=== PATIENT | female | born 1980 | race African-American/Black ===

== ENCOUNTER 2016-12-31 16:49 | Emergency (ER) | payer MEDICAID ==
[2016-12-31] MEDS ORDERED: ASPIRIN 81 MG TABLET, CHEWABLE PO ONE (17:53)
--- NOTE | 2016-12-31 17:55 | ER Document Report ---
ED Medical Screen (RME) - General Stated Complaint: CHEST PAIN Mode of Arrival: Ambulatory Information source: Patient Notes: Patient presents to the emergency department with complaints of right-sided chest pain that comes and goes for the past month and a half. She reports she will for spasm and tightening. She also complains of right sided arm pain. Denies other symptoms such as fever vomiting diarrhea. Denies history of cardiac disease. Denies family history of cardiac disease. Patient does smoke. TRAVEL OUTSIDE OF THE [place] IN LAST 30 DAYS: No Past Medical History Pulmonary Medical History: Denies: Hx Asthma, Hx Pneumonia Past Surgical History: Reports: Hx Orthopedic Surgery - hip Physical Exam - Vital signs Vitals: Temp Pulse Resp BP Pulse Ox 98.5 F 74 14 127/84 H 98 12/31/16 16:53 12/31/16 16:53 12/31/16 16:53 12/31/16 16:53 12/31/16 16:53 Course - Vital Signs Vital signs: Temp Pulse Resp BP Pulse Ox 98.5 F 74 14 127/84 H 98 12/31/16 16:53 12/31/16 16:53 12/31/16 16:53 12/31/16 16:53 12/31/16 16:53
[2016-12-31 18:17] LABS: ABSOLUTE EOSINOPHILS # (AUTO) 0.1 10^3/uL (0.0-0.6); ABSOLUTE LYMPHOCYTES (AUTO) 3.1 10^3/uL (0.5-4.7); ABSOLUTE MONOCYTES (AUTO) 0.6 10^3/uL (0.1-1.4); ABSOLUTE NEUT (AUTO) 3.1 10^3/uL (1.7-8.2); BASOPHILS % (AUTO) 0.7 % (0-2); EOSINOPHILS % (AUTO) 1.8 % (0-6); HEMATOCRIT 35.3 % (36.0-47.0); HGB HCT DIFFERENCE 0.7; LYMPHOCYTES % (AUTO) 44.6 % (13-45); MEAN CORPUSCULAR HEMOGLOBIN 33.7 pg (27.0-33.4); MEAN CORPUSCULAR VOLUME 99 fl (80-97); MONOCYTES % (AUTO) 8.9 % (3-13); RED BLOOD COUNT 3.57 10^6/uL (3.72-5.28); RED CELL DISTRIBUTION WIDTH 12.6 % (11.5-14.0); WHITE BLOOD COUNT 6.9 10^3/uL (4.0-10.5)
[2016-12-31 18:39] LABS: ALANINE AMINOTRANSFERASE 25 U/L (9-52); ALBUMIN 4.7 g/dL (3.5-5.0); ALKALINE PHOSPHATASE 74 U/L (38-126); ANION GAP 13 (5-19); ASPARTATE AMINO TRANSFERASE 19 U/L (14-36); BILIRUBIN,TOTAL 0.6 mg/dL (0.2-1.3); BLOOD UREA NITROGEN 12 mg/dL (7-20); CALCIUM 9.8 mg/dL (8.4-10.2); CARBON DIOXIDE 27 mmol/L (22-30); CHLORIDE 103 mmol/L (98-107); CREATINE KINASE 82 U/L (30-135); CREATININE RESULT 0.82 mg/dL (0.52-1.25); GLUCOSE 93 mg/dL (75-110); SODIUM 142.5 mmol/L (137-145); TOTAL PROTEIN 8.2 g/dL (6.3-8.2)
[2016-12-31 18:52] LABS: CREATINE KINASE MB < 0.22 ng/mL (<4.55); TROPONIN I < 0.012 ng/mL
--- NOTE | 2016-12-31 19:41 | EKG REPORT ---
SEVERITY:- NORMAL ECG - SINUS RHYTHM : Confirmed by: Leisa Menon 31-Dec-2016 19:40:51
--- NOTE | 2016-12-31 20:06 | ER Document Report ---
ED General - General Chief Complaint: Chest Pain Stated Complaint: CHEST PAIN Mode of Arrival: Ambulatory Information source: Patient Notes: 36-year-old female presents with complaints of intermittent chest tightness sensation which occurs at rest and without any exertion. Patient notes she is able to exercise daily with no problems. Patient denies any shortness breath difficulty breathing. Patient denies any DVT or PE risk factors. Patient denies any cardiac risk factors. Patient notes symptoms have been ongoing for a few weeks now Patient admits to anxiety TRAVEL OUTSIDE OF THE [place] IN LAST 30 DAYS: No - HPI Onset: Other Onset/Duration: Intermittent Quality of pain: Cramping Severity: Mild Pain Level: 1 Associated symptoms: Chest pain Exacerbated by: Denies Relieved by: Denies Similar symptoms previously: No Recently seen / treated by doctor: No Past Medical History - General Information source: Patient - Social History Smoking Status: Never Smoker Cigarette use (# per day): No Chew tobacco use (# tins/day): No Smoking Education Provided: No Family History: Reviewed & Not Pertinent Pulmonary Medical History: Denies: Hx Asthma, Hx Pneumonia Past Surgical History: Reports: Hx Orthopedic Surgery - hip Review of Systems - Review of Systems Notes: REVIEW OF SYSTEMS: CONSTITUTIONAL : Denies fever, chills, or sweats. Denies recent illness. EENT: Denies eye, ear, throat, or mouth pain or symptoms. Denies nasal or sinus congestion or discharge. Denies throat, tongue, or mouth swelling or difficulty swallowing. CARDIOVASCULAR: Admits to chest tightness RESPIRATORY: Denies cough, cold, or chest congestion. Denies shortness of breath, difficulty breathing, or wheezing. GASTROINTESTINAL: Denies abdominal pain or distention. Denies nausea, vomiting , or diarrhea. Denies blood in vomitus, stools, or per rectum. Denies black, tarry stools. Denies constipation. GENITOURINARY: Denies difficulty urinating, painful urination, burning, frequency, blood in urine, or discharge. FEMALE GENITOURINARY: Denies vaginal bleeding, heavy or abnormal periods, irregular periods. Denies vaginal discharge or odor. MUSCULOSKELETAL: Denies back or neck pain or stiffness. Denies joint pain or swelling. SKIN: Denies rash, lesions or sores. HEMATOLOGIC : Denies easy bruising or bleeding. LYMPHATIC: Denies swollen, enlarged glands. NEUROLOGICAL: Denies confusion or altered mental status. Denies passing out or loss of consciousness. Denies dizziness or lightheadedness. Denies headache. Denies weakness or paralysis or loss of use of either side. Denies problems with gait or speech. Denies sensory loss, numbness, or tingling. Denies seizures. PSYCHIATRIC: Denies anxiety or stress. Denies depression, suicidal ideation, or homicidal ideation. ALL OTHER SYSTEMS REVIEWED AND NEGATIVE. Dictation was performed using hi5 voice recognition software PHYSICAL EXAMINATION: GENERAL: Well-appearing, well-nourished and in no acute distress. HEAD: Atraumatic, normocephalic. EYES: Pupils equal round and reactive to light, extraocular movements intact, conjunctiva are normal. ENT: Nares patent, oropharynx clear without exudates. Moist mucous membranes. NECK: Normal range of motion, supple without lymphadenopathy LUNGS: Breath sounds clear to auscultation bilaterally and equal. No wheezes rales or rhonchi. HEART: Regular rate and rhythm without murmurs ABDOMEN: Soft, nontender, nondistended abdomen. No guarding, no rebound. No masses appreciated. Female : deferred Musculoskeletal: Normal range of motion, no pitting or edema. No cyanosis. NEUROLOGICAL: Cranial nerves grossly intact. Normal speech, normal gait. Normal sensory, motor exams PSYCH: Normal mood, normal affect. SKIN: Warm, Dry, normal turgor, no rashes or lesions noted. Physical Exam - Vital signs Vitals: Temp Pulse Resp BP Pulse Ox 98.5 F 74 14 127/84 H 98 12/31/16 16:53 12/31/16 16:53 12/31/16 16:53 12/31/16 16:53 12/31/16 16:53 Course - Re-evaluation Re-evalutation: 12/31/16 20:10 Given that patient has actually no risk factors for cardiac events, specifically condoms were negative chest x-ray was normal EKG was normal I have very low suspicion for any life-threatening issues. Patient will be given a follow-up with cardiology for reevaluation as otherwise stable for discharge After performing a Medical Screening Examination, I estimate there is LOW risk for RUPTURED ESOPHAGUS, PNEUMOTHORAX, PULMONARY EMBOLISM, ACUTE CORONARY SYNDROME, OR THORACIC AORTIC DISSECTION, thus I consider the discharge disposition reasonable. The patient and I have discussed the diagnosis and risks , and we agree with discharging home with close follow-up. We also discussed returning to the Emergency Department immediately if new or worsening symptoms occur. We have discussed the symptoms which are most concerning (e.g., bloody sputum, worsening pain or shortness of breath) that necessitate immediate return. - Vital Signs Vital signs: Temp Pulse Resp BP Pulse Ox 98.5 F 74 14 127/84 H 98 12/31/16 16:53 12/31/16 16:53 12/31/16 16:53 12/31/16 16:53 12/31/16 16:53 - Laboratory Result Diagrams: 12/31/16 18:00 12/31/16 18:00 Laboratory results interpreted by me: 12/31/16 18:00 RBC 3.57 L Hct 35.3 L MCV 99 H MCH 33.7 H - Diagnostic Test Radiology reviewed: Image reviewed, Reports reviewed - EKG Interpretation by Nv EKG shows normal: Sinus rhythm, [place], Intervals, QRS Complexes Discharge - Discharge Clinical Impression: Chest pain Qualifiers: Chest pain type: unspecified Qualified Code(s): R07.9 - Chest pain, unspecified Condition: Stable Disposition: HOME, SELF-CARE Instructions: Chest Pain of Unclear Cause ([facility]) Additional Instructions: 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 Please take aspirin daily
[2016-12-31 20:39] VITALS: BP 121/78
== END 2016-12-31 20:40 | disposition home or self-care (01) ==
LOC: ER 16:49
DX: R07.89 Other chest pain (principal); F41.9 Anxiety disorder, unspecified
CPT/HCPCS: 36415; 71020; 80053; 82550; 82553; 84484; 84703; 85025; 93005; 93010; 99285

== ENCOUNTER → 2017-05-23 | Outpatient (CLI) | payer MEDICAID ==
--- NOTE | 2017-05-23 15:26 | RADIOLOGY REPORT (SQ) ---
EXAM DESCRIPTION: ACUTE ABDOMEN SERIES COMPLETED DATE/TIME: 05/23/2017 1:32 pm REASON FOR STUDY: UNSPECIFIED ABDOMINAL PAIN R10.9 UNSPECIFIED ABDOMINAL PAIN COMPARISON: None. NUMBER OF VIEWS: Three views. TECHNIQUE: Frontal chest, supine abdomen and upright/decubitus abdomen radiographic images acquired. LIMITATIONS: None. FINDINGS: CHEST: Lungs clear of infiltrates. FREE AIR: None. No abnormal gas collections. BOWEL GAS PATTERN: Nonobstructive pattern. No dilated loops or air fluid levels. CALCIFICATIONS: No suspicious calcifications. HARDWARE: Surgical clips in the pelvis and lower abdomen. SOFT TISSUES: No gross mass or suggestion of organomegaly. BONES: No acute fracture. No worrisome bone lesions. OTHER: No other significant finding. IMPRESSION: NO RADIOGRAPHIC EVIDENCE FOR ACUTE ABDOMINAL DISEASE. TECHNICAL DOCUMENTATION: JOB ID: [id number] [employer] All Rights Reserved
== END ==
LOC: OD 12:33
PROVIDERS: ATTEND Family Medicine Geriatric Medicine
DX: R10.9 Unspecified abdominal pain (principal)
CPT/HCPCS: 74022

== ENCOUNTER → 2017-09-02 | Outpatient (CLI) | payer OTHER ==
--- NOTE | 2017-09-02 12:48 | RADIOLOGY REPORT (SQ) ---
EXAM DESCRIPTION: U/S NON-OB PELVIS W/O DOP; U/S NON-OB PELVIS TV W/O DOP COMPLETED DATE/TIME: 09/02/2017 11:46 am REASON FOR STUDY: ANEMIA, HEAVY MENSTRUAL BLEEDING D64.9 ANEMIA, UNSPECIFIED LMP 08/16/2017 COMPARISON: None. TECHNIQUE: Dynamic and static grayscale images acquired of the pelvis via transabdominal approach an d recorded on PACS. Additional selected color Doppler and spectral images recorded. LIMITATIONS: None. FINDINGS: UTERUS: Fibroids are seen. The largest measures 3.1 x 4.4 x 4.5 cm. ENDOMETRIAL STRIPE: There is a 4 x 5 mm cystic area associated with the endometrial canal. CERVIX: 2.8 cm. No nabothian cysts. RIGHT OVARY: No abnormal masses. RIGHT OVARY DOPPLER: Normal arterial vascular flow without evidence for torsion. LEFT OVARY: No abnormal masses. LEFT OVARY DOPPLER: There is a 1.5 x 1.4 x 0.9 cm cyst. FREE FLUID: None noted. OTHER: No other significant finding. MEASUREMENTS: UTERUS: 9.6 x 6.1 x 5.9 cm. ENDOMETRIAL STRIPE: 8 mm. RIGHT OVARY: 2.4 x 2.2 x 3.2 cm. LEFT OVARY: 3.1 x 3.0 x 1.8 cm. IMPRESSION: The study is essentially normal. There is a very small cystic area associated with the endometrium. Etiology is significance uncertain. There is no overall appearance of adenomyosis. It could represent a small myometrial cyst. TECHNICAL DOCUMENTATION: JOB ID: [id number]- All Rights Reserved
== END ==
LOC: RAD 10:57
PROVIDERS: ATTEND Nurse Practitioner Adult Health
DX: D64.9 Anemia, unspecified (principal); N92.0 Excessive and frequent menstruation with regular cycle
CPT/HCPCS: 76830; 76856

== ENCOUNTER 2017-09-27 09:49 | Outpatient (CLI) | payer MEDICAID, OTHER ==
[~2017-09-27 09:49] MED LIST: FERRIC CARBOXYMALTOSE 750 MG in NORMAL SALINE 250 ML IV PRN; NORMAL SALINE 250 ML IV PRN
[2017-09-27 10:24] VITALS: BP 115/67
== END 2017-09-27 11:11 | disposition home or self-care (01) ==
LOC: II 09:49 → 5TH 09:55 → II 11:11
PROVIDERS: ATTEND Internal Medicine
PROC: 3E033GC Introduction of Other Therapeutic Substance into Peripheral Vein, Percutaneous Approach (ICD-10-PCS; principal; 2017-09-27)
DX: Z76.89 Persons encountering health services in other specified circumstances (principal)
CPT/HCPCS: 96365; J7050; J1439

== ENCOUNTER 2017-10-04 09:41 | Outpatient (CLI) | payer MEDICAID ==
[2017-10-04 10:19] VITALS: BP 103/64
== END 2017-10-04 11:35 | disposition home or self-care (01) ==
LOC: II 09:41 → 5TH 09:42 → II 11:35
PROVIDERS: ATTEND Internal Medicine
PROC: 3E033GC Introduction of Other Therapeutic Substance into Peripheral Vein, Percutaneous Approach (ICD-10-PCS; principal; 2017-10-04)
DX: D50.8 Other iron deficiency anemias (principal); K90.9 Intestinal malabsorption, unspecified
CPT/HCPCS: 96365; J7050; J1439; 96367

== ENCOUNTER 2017-12-15 20:50 | Emergency (ER) | payer MEDICAID ==
[2017-12-15 20:59] VITALS: BP 114/72
--- NOTE | 2017-12-15 21:41 | ER Document Report ---
HPI - HPI Patient complains to provider of: bites on face Onset: Yesterday Onset/Duration: Gradual Pain Level: 5 Context: 37 yo female with facial itching bites since yesterdady. Killed bug in laundry room-red/black, not spider. Associated Symptoms: None Exacerbated by: Denies Relieved by: Denies - ROS ROS below otherwise negative: Yes Systems Reviewed and Negative: Yes All other systems reviewed and negative - REPRODUCTIVE LMP: now; IUD; tubal ligation Past Medical History - General Information source: Patient - Social History Smoking Status: Never Smoker Frequency of alcohol use: None Drug Abuse: None Lives with: Family Family History: Reviewed & Not Pertinent Patient has suicidal ideation: No Patient has homicidal ideation: No - Medical History Medical History: Negative Renal/ Medical History: Denies: Hx Peritoneal Dialysis Past Surgical History: Reports: Hx Orthopedic Surgery - hip Vertical Provider Document - INFECTION CONTROL TRAVEL OUTSIDE OF THE [place] IN LAST 30 DAYS: Yes - HEENT HEENT: Normocephalic Notes: 3-4 mm indurated ? bites face-3 total. 1 on left upper arm. - NECK Neck: Supple. negative: Lymphadenopathy-Left, Lymphadenopathy-Right - RESPIRATORY Respiratory: Breath Sounds Normal, No Respiratory Distress O2 Sat by Pulse Oximetry: 98 - CARDIOVASCULAR Cardiovascular: Regular Rate, Regular Rhythm - MUSCULOSKELETAL/EXTREMETIES Musculoskeletal/Extremeties: MAEW, FROM - NEURO Level of Consciousness: Awake, Alert Motor/Sensory: No Motor Deficit, No Sensory Deficit - DERM Integumentary: Warm, Dry, Rash - see above Course - Vital Signs Vital signs: Temp Pulse Resp BP Pulse Ox 99.0 F 84 16 114/72 98 12/15/17 20:58 12/15/17 20:58 12/15/17 20:58 12/15/17 20:58 12/15/17 20:58 Discharge - Discharge Clinical Impression: inflamed insect bites-face Condition: Good Disposition: HOME, SELF-CARE Instructions: Use of Diphenhydramine, Insect Bites ([facility]), Topical Steroid Cream or Ointment ([facility]) Additional Instructions: to er any concerns continue the hydrocortisone cream or ointment and Benadryl for the itch Referrals: CHUN SAMPSON MD [Primary Care Provider] - Follow up as needed
== END 2017-12-15 21:45 | disposition home or self-care (01) ==
LOC: ER 20:50
DX: S00.86XA Insect bite (nonvenomous) of other part of head, initial encounter (principal); W57.XXXA Bitten or stung by nonvenomous insect and other nonvenomous arthropods, initial encounter; Y92.008 Other place in unspecified non-institutional (private) residence as the place of occurrence of the external cause
CPT/HCPCS: 99283

== ENCOUNTER 2018-04-23 21:53 | Emergency (ER) | payer OTHER, MEDICAID ==
--- NOTE | 2018-04-23 23:14 | ER Document Report ---
ED GI/ - General Chief Complaint: Vaginal Bleeding Stated Complaint: VAGINAL BLEEDING Time Seen by Provider: 04/23/18 23:08 Notes: The patient is a 37-year-old female who presents with vaginal bleeding after her IUD came out yesterday after she wiped her vagina. She is also having lower abdominal cramping during this bleeding. Her last period was 2 months ago. She denies dysuria, flank pain, nausea or vomiting. TRAVEL OUTSIDE OF THE [place] IN LAST 30 DAYS: No - Related Data Allergies/Adverse Reactions: Sulfa (Sulfonamide Antibiotics) Allergy (Verified 04/23/18 22:38) Past Medical History - General Information source: Patient - Social History Smoking Status: Never Smoker Frequency of alcohol use: Rare Drug Abuse: None Family History: Reviewed & Not Pertinent Patient has suicidal ideation: No Patient has homicidal ideation: No Pulmonary Medical History: Denies: Hx Asthma, Hx Pneumonia Renal/ Medical History: Denies: Hx Peritoneal Dialysis Past Surgical History: Reports: Hx Orthopedic Surgery - hip Review of Systems - Review of Systems Notes: REVIEW OF SYSTEMS: CONSTITUTIONAL: -fevers, -chills EENT: -eye pain, -difficulty swallowing, -nasal congestion CARDIOVASCULAR: -chest pain, -syncope. RESPIRATORY: -cough, -SOB GASTROINTESTINAL: +lower abdominal cramping, -nausea, -vomiting, -diarrhea GENITOURINARY: -dysuria, -hematuria, +vaginal bleeding MUSCULOSKELETAL: -back pain, -neck pain SKIN: -rash or skin lesions. HEMATOLOGIC: -easy bruising or bleeding. LYMPHATIC: -swollen, enlarged glands. NEUROLOGICAL: -altered mental status or loss of consciousness, -headache, - neurologic symptoms PSYCHIATRIC: -anxiety, -depression. ALL OTHER SYSTEMS REVIEWED AND NEGATIVE. Physical Exam - Vital signs Vitals: Temp Pulse Resp BP Pulse Ox 98.6 F 80 18 135/85 H 100 04/23/18 22:12 04/23/18 22:12 04/23/18 22:12 04/23/18 22:12 04/23/18 22:12 - Notes Notes: PHYSICAL EXAMINATION: GENERAL: Well-appearing, well-nourished and in no acute distress. HEAD: Atraumatic, normocephalic. EYES: Pupils equal round and reactive to light, extraocular movements intact, sclera anicteric, conjunctiva are normal. ENT: nares patent, oropharynx clear without exudates. Moist mucous membranes. NECK: Normal range of motion, supple without lymphadenopathy LUNGS: Breath sounds clear to auscultation bilaterally and equal. No wheezes rales or rhonchi. HEART: Regular rate and rhythm without murmurs ABDOMEN: Soft, nontender, normoactive bowel sounds. No guarding, no rebound. No masses appreciated. PELVIC (Chaperoned by ELLIS Barrett): No vaginal lacerations. Small amount of blood oozing from cervical os. Non-tender utuerus and adnexa. EXTREMITIES: Normal range of motion, no pitting or edema. No cyanosis. NEUROLOGICAL: Cranial nerves grossly intact. Normal speech, normal gait. Normal sensory and motor exams. PSYCH: Normal mood, normal affect. SKIN: Warm, Dry, normal turgor, no rashes or lesions noted. Course - Re-evaluation Re-evalutation: Patient appears well. Her hemoglobin is normal and she is not . Suspect her bleeding may be from hormone changes since her IUD was accidentally removed last night. No lacerations seen. She will follow-up with her lei seller this week. Instructed her to take anti-inflammatories to help with the cramping and uterine artery constriction. - Vital Signs Vital signs: Temp Pulse Resp BP Pulse Ox 98.6 F 80 18 135/85 H 100 04/23/18 22:12 04/23/18 22:12 04/23/18 22:12 04/23/18 22:12 04/23/18 22:12 - Laboratory Result Diagrams: 04/23/18 22:54 Laboratory results interpreted by me: 04/23/18 04/23/18 22:54 22:54 RBC 3.67 L MCV 100 H MCH 34.1 H Urine Blood LARGE H Discharge - Discharge Clinical Impression: Vaginal bleeding Condition: Stable Disposition: HOME, SELF-CARE Additional Instructions: VAGINAL BLEEDING: You are having an episode of abnormal bleeding. Causes of abnormal vaginal bleeding can include miscarriage or tubal , tumors such as cancer or benign fibroids, medication effects, or hormone imbalance. Testing can eliminate unsuspected , tumors, or infection as a cause. "Dysfunctional uterine bleeding" is due to hormone imbalance, and is especially common at times when the normal cycle is disturbed -- whether by recent , use of control pills or hormones, or impending menopause. If the bleeding is innocent, most commonly a short course of hormones is given to restore the uterus to normal. Sometimes, the normal menstrual cycle corrects itself naturally. Sometimes , brief hormone therapy, or even a D&C is required. Your physician will advise you. Treatment for anemia may be required if bleeding is severe. You should rest and avoid intercourse until the bleeding is controlled. Call the doctor or return for re-examination if you feel faint, have increasing pain, or have a major increase in the amount of bleeding. NORMAL EXAM AND WORKUP: At this time, except for vaginal bleeding, your examination and workup show no significant abnormality. No significant abnormal physical findings were noted. All laboratory, EKG, and imaging (x-ray, CT scans, ultrasound) studies that were ordered show no significant abnormality. Although your examination and all studies that were ordered showed no significant abnormal finding, there are no examinations and no studies that are 100% accurate. There is always the possibility that some abnormality could exist and not be detected with physical examination or within the limits and capabilities of laboratory and other studies. You should return or follow up as you were instructed on your visit today for further evaluation if your symptoms do not resolve. FOLLOW-UP CARE: If you have been referred to a physician for follow-up care, call the physician s office for an appointment as you were instructed or within the next two days. If you experience worsening or a significant change in your symptoms (very heavy bleeding with large clots of blood, passage of tissue, more severe abdominal / pelvic pain or cramping, feeling faint or severe weakness, fever, etc.), notify the physician immediately or return to the Emergency Department at any time for re-evaluation. OBSTETRIC-GYNECOLOGIC (OB-ROOFING FOREMAN) PHYSICIANS IN [place]: [facility] [address] [place], [place] [phone] [facility] [address] [place] [address] [phone] Forms: Elevated Blood Pressure Referrals: CHUN SAMPSON MD [Primary Care Provider] - Follow up as needed PAM LIZ MD [ACTIVE STAFF] - Follow up as needed
[2018-04-23 23:27] LABS: APPEARANCE,URINE CLEAR; BILIRUBIN,URINE NEGATIVE (NEGATIVE); COLOR,URINE STRAW; GLUCOSE, URINE NEGATIVE (NEGATIVE); KETONES,URINE NEGATIVE (NEGATIVE); LEUKOCYTE ESTERASE,URINE NEGATIVE (NEGATIVE); NITRITE,URINE NEGATIVE (NEGATIVE); PROTEIN,URINE NEGATIVE (NEGATIVE); UROBILINOGEN,URINE NEGATIVE mg/dL (<2.0)
[2018-04-23 23:34] LABS: ABSOLUTE EOSINOPHILS # (AUTO) 0.1 10^3/uL (0.0-0.6); ABSOLUTE LYMPHOCYTES (AUTO) 3.1 10^3/uL (0.5-4.7); ABSOLUTE MONOCYTES (AUTO) 0.5 10^3/uL (0.1-1.4); ABSOLUTE NEUT (AUTO) 4.4 10^3/uL (1.7-8.2); BASOPHILS % (AUTO) 0.3 % (0-2); EOSINOPHILS % (AUTO) 0.9 % (0-6); HEMATOCRIT 36.9 % (36.0-47.0); HEMOGLOBIN 12.5 g/dL (12.0-15.5); LYMPHOCYTES % (AUTO) 38.2 % (13-45); MEAN CORPUSCULAR HEMOGLOBIN 34.1 pg (27.0-33.4); MEAN CORPUSCULAR VOLUME 100 fl (80-97); MONOCYTES % (AUTO) 6.3 % (3-13); PLATELET COUNT 365 10^3/uL (150-450); RED BLOOD COUNT 3.67 10^6/uL (3.72-5.28); RED CELL DISTRIBUTION WIDTH 12.7 % (11.5-14.0); SEGMENTED NEUTROPHILS % (AUTO) 54.3 % (42-78); TOTAL CELLS COUNTED % (AUTO) 100 %; WHITE BLOOD COUNT 8.1 10^3/uL (4.0-10.5)
[2018-04-24] MEDS ORDERED: IBUPROFEN 600 MG TABLET PO ONE (00:14)
[2018-04-24 00:42] VITALS: BP 109/63
== END 2018-04-24 00:40 | disposition home or self-care (01) ==
LOC: ER 21:53
DX: N93.9 Abnormal uterine and vaginal bleeding, unspecified (principal); R10.30 Lower abdominal pain, unspecified
CPT/HCPCS: 36415; 81001; 84703; 85025; 99284

== ENCOUNTER → 2018-08-04 | Outpatient (CLI) | payer OTHER, MEDICAID ==
[2018-08-04 09:30] LABS: ABSOLUTE EOSINOPHILS # (AUTO) 0.1 10^3/uL (0.0-0.6); ABSOLUTE LYMPHOCYTES (AUTO) 1.6 10^3/uL (0.5-4.7); ABSOLUTE MONOCYTES (AUTO) 0.6 10^3/uL (0.1-1.4); ABSOLUTE NEUT (AUTO) 3.3 10^3/uL (1.7-8.2); BASOPHILS % (AUTO) 0.4 % (0-2); EOSINOPHILS % (AUTO) 1.3 % (0-6); HEMATOCRIT 35.3 % (36.0-47.0); HEMOGLOBIN 12.1 g/dL (12.0-15.5); LYMPHOCYTES % (AUTO) 28.9 % (13-45); MEAN CORPUSCULAR HEMOGLOBIN 33.2 pg (27.0-33.4); MEAN CORPUSCULAR HGB CONC 34.2 g/dL (32.0-36.0); MEAN CORPUSCULAR VOLUME 97 fl (80-97); MONOCYTES % (AUTO) 10.6 % (3-13); PLATELET COUNT 325 10^3/uL (150-450); RED BLOOD COUNT 3.64 10^6/uL (3.72-5.28); RED CELL DISTRIBUTION WIDTH 12.4 % (11.5-14.0); SEGMENTED NEUTROPHILS % (AUTO) 58.8 % (42-78); TOTAL CELLS COUNTED % (AUTO) 100 %; WHITE BLOOD COUNT 5.6 10^3/uL (4.0-10.5)
[2018-08-04 10:01] LABS: ALANINE AMINOTRANSFERASE 29 U/L (9-52); ALBUMIN 4.2 g/dL (3.5-5.0); ALKALINE PHOSPHATASE 60 U/L (38-126); ANION GAP 11 (5-19); ASPARTATE AMINO TRANSFERASE 22 U/L (14-36); BILIRUBIN,DIRECT 0.1 mg/dL (0.0-0.4); BILIRUBIN,TOTAL 0.5 mg/dL (0.2-1.3); BLOOD UREA NITROGEN 9 mg/dL (7-20); CALCIUM 9.7 mg/dL (8.4-10.2); CARBON DIOXIDE 24 mmol/L (22-30); CHLORIDE 104 mmol/L (98-107); CHOLESTEROL 202.55 mg/dL (0-200); GLUCOSE 93 mg/dL (75-110); POTASSIUM 4.4 mmol/L (3.6-5.0); SODIUM 139.4 mmol/L (137-145); TOTAL PROTEIN 7.7 g/dL (6.3-8.2); TRIGLYCERIDES 119 mg/dL (<150)
[2018-08-04 10:12] LABS: DIRECT LDL 125 mg/dL (<100)
== END ==
LOC: OD 08:39
PROVIDERS: ATTEND Family Medicine Geriatric Medicine
DX: D50.9 Iron deficiency anemia, unspecified (principal); E78.5 Hyperlipidemia, unspecified; Z79.899 Other long term (current) drug therapy
CPT/HCPCS: 36415; 80048; 80061; 80076; 84443; 85025

== ENCOUNTER → 2018-12-15 | Outpatient (CLI) | payer OTHER ==
--- NOTE | 2018-12-15 12:02 | RADIOLOGY REPORT (SQ) ---
EXAM DESCRIPTION: CHEST PA/LATERAL COMPLETED DATE/TIME: 12/15/2018 11:17 am REASON FOR STUDY: ACUTE BRONCHITIS,WHEEZING COMPARISON: Two-view chest 12/31/2016 EXAM PARAMETERS: NUMBER OF VIEWS: two views TECHNIQUE: Digital Frontal and Lateral radiographic views of the chest acquired. RADIATION DOSE: NA LIMITATIONS: none FINDINGS: LUNGS AND PLEURA: No opacities, masses or pneumothorax. No pleural effusion. MEDIASTINUM AND HILAR STRUCTURES: No masses or contour abnormalities. HEART AND VASCULAR STRUCTURES: Heart normal size. No evidence for failure. BONES: No acute findings. HARDWARE: None in the chest. OTHER: No other significant finding. IMPRESSION: NO SIGNIFICANT RADIOGRAPHIC FINDING IN THE CHEST. TECHNICAL DOCUMENTATION: JOB ID: [id number] [employer]- All Rights Reserved Reading location - IP/workstation name: [email or web address]
== END ==
LOC: OD 11:02
PROVIDERS: ATTEND Family Medicine Geriatric Medicine
DX: J20.9 Acute bronchitis, unspecified (principal); R06.2 Wheezing
CPT/HCPCS: 71046

== ENCOUNTER 2019-12-20 05:16 | Day surgery (SDC) | payer OTHER ==
[2019-12-03 11:01] LABS: HEMATOCRIT 33.6 % (36.0-47.0); HEMOGLOBIN 11.3 g/dL (12.0-15.5); MEAN CORPUSCULAR HEMOGLOBIN 32.6 pg (27.0-33.4); MEAN CORPUSCULAR HGB CONC 33.7 g/dL (32.0-36.0); MEAN CORPUSCULAR VOLUME 97 fl (80-97); PLATELET COUNT 362 10^3/uL (150-450); RED BLOOD COUNT 3.47 10^6/uL (3.72-5.28); RED CELL DISTRIBUTION WIDTH 13.2 % (11.5-14.0); WHITE BLOOD COUNT 4.5 10^3/uL (4.0-10.5)
[2019-12-03 11:07] LABS: APPEARANCE,URINE CLEAR; BILIRUBIN,URINE NEGATIVE (NEGATIVE); COLOR,URINE YELLOW; GLUCOSE, URINE NEGATIVE (NEGATIVE); KETONES,URINE NEGATIVE (NEGATIVE); LEUKOCYTE ESTERASE,URINE NEGATIVE (NEGATIVE); NITRITE,URINE NEGATIVE (NEGATIVE); PROTEIN,URINE NEGATIVE (NEGATIVE); URINE SPECIFIC GRAVITY 1.018; UROBILINOGEN,URINE NEGATIVE mg/dL (<2.0)
[2019-12-03 11:23] LABS: ALBUMIN 4.3 g/dL (3.5-5.0); ALKALINE PHOSPHATASE 63 U/L (38-126); ANION GAP 12 (5-19); ASPARTATE AMINO TRANSFERASE 18 U/L (14-36); BILIRUBIN,DIRECT 0.2 mg/dL (0.0-0.4); BILIRUBIN,TOTAL 0.4 mg/dL (0.2-1.3); BLOOD UREA NITROGEN 11 mg/dL (7-20); CALCIUM 9.3 mg/dL (8.4-10.2); CARBON DIOXIDE 25 mmol/L (22-30); CHLORIDE 104 mmol/L (98-107); GLUCOSE 82 mg/dL (75-110); POTASSIUM 4.4 mmol/L (3.6-5.0); TOTAL PROTEIN 8.1 g/dL (6.3-8.2)
[~2019-12-20 05:16] MED LIST changes: +CEFAZOLIN 1 GM/D5W RTU 1 GM/50 ML RTUPB IV ONE; +CEFAZOLIN 1 GM/D5W RTU 1 GM/50 ML RTUPB IV PRN; -FERRIC CARBOXYMALTOSE 750 MG in NORMAL SALINE 250 ML IV PRN; +LACTATED RINGERS 1000 ML IV PRN; +LIDOCAINE 0.5% INJ-PF (5 MG/ML) 50 ML SDV SUBCUT PRN; -NORMAL SALINE 250 ML IV PRN; +RINGERS SOLUTION,LACTATED 1,000 ML IV PRN
[2019-12-20] MEDS ORDERED: ONDANSETRON HCL INJ/PF 4 MG/2 ML SDV ONE (07:11)
[2019-12-20] MEDS ORDERED: KETOROLAC TROMETHAMINE 60 MG/2 ML SDV ONE (07:11)
[2019-12-20] MEDS ORDERED: MORPHINE SULFATE 10 MG/ML INJ ONE (07:11)
[2019-12-20] MEDS ORDERED: FENTANYL CITRATE INJ/PF 250 MCG/5 ML AMPULE ONE (07:11)
[2019-12-20] MEDS ORDERED: DEXAMETHASONE SOD PHOSPHATE INJ 4 MG/1 ML VIAL ONE (07:11)
[2019-12-20] MEDS ORDERED: MIDAZOLAM 2 MG/2 ML INJ ONE (07:11)
[2019-12-20] MEDS ORDERED: PROPOFOL INJ 200 MG/20 ML VIAL IV ONE (07:12)
[2019-12-20] MEDS ORDERED: DIPHENHYDRAMINE HCL 50 MG/ML VIAL IV PRN (08:34)
[2019-12-20] MEDS ORDERED: FENTANYL CITRATE INJ/PF 100 MCG/2 ML AMPUL IV PRN ×3 (08:34)
[2019-12-20] MEDS ORDERED: PROMETHAZINE HCL INJ 25 MG/1 ML VIAL IV PRN ×2 (08:34)
[2019-12-20] MEDS ORDERED: MEPERIDINE HCL/PF INJ 25 MG/1 ML DISP.SYRIN IV PRN (08:34)
[2019-12-20] MEDS ORDERED: MORPHINE SULFATE 10 MG/ML INJ IV PRN ×2 (08:34→10:30)
[2019-12-20] MEDS ORDERED: OXYCODONE-ACETAMINOPHEN 5-325 MG TABLET PO PRN ×3 (08:34→10:30)
[2019-12-20] MEDS ORDERED: ONDANSETRON HCL INJ/PF 4 MG/2 ML SDV IV PRN (08:34)
[2019-12-20] MEDS ORDERED: ACETAMINOPHEN 1,000 MG/100 ML RTUPB IV ONE ×3 (10:08→18:30)
[2019-12-20] MEDS ORDERED: CEFTRIAXONE INJ 1000 MG VIAL ONE (10:10)
[2019-12-20] MEDS ORDERED: FENTANYL CITRATE INJ/PF 100 MCG/2 ML AMPUL ONE (10:38)
[2019-12-20] MEDS ORDERED: VECURONIUM BROMIDE INJ 10 MG VIAL IV ONE (12:22)
[2019-12-20] MEDS ORDERED: GLYCOPYRROLATE 1 MG/5 ML VIAL ONE (12:22)
[2019-12-20] MEDS ORDERED: SUCCINYLCHOLINE CHLORIDE INJ 200 MG/10 ML VIAL ONE (12:22)
[2019-12-20] MEDS ORDERED: NEOSTIGMINE METHYLSULFATE 10 MG/10 ML VIAL ONE (12:22)
[2019-12-20] MEDS: AZITHROMYCIN 500 MG in DEXTROSE 5%-WATER 250 ML IV SCH ×2 (12:35→23:27)
[2019-12-20] MEDS: KETOROLAC TROMETHAMINE INJ/PF 30 MG/1 ML SDV IV SCH ×2 (13:24→23:26)
--- NOTE | 2019-12-20 13:30 | Operative Report ---
Operative Report DATE OF SURGERY: 12/20/19 PREOPERATIVE DIAGNOSIS: Multiple leiomyomas, abnormal uterine bleeding, anemia, pelvic pain POSTOPERATIVE DIAGNOSIS: Same OPERATION: Robotic assisted total laparoscopic hysterectomy with bilateral salpingectomy SURGEON: PAM LIZ 1ST PLANT FLOOR AUTOMATION MANAGER: ZELALEM RIOS 2ND Rubber Molder: JULIANN KHANNA ANESTHESIA: GA TISSUE REMOVED OR ALTERED: Uterus cervix bilateral fallopian tubes COMPLICATIONS: None ESTIMATED BLOOD LOSS: 100 cc INTRAOPERATIVE FINDINGS: Uterus sounded to approximately 12 cm. Multiple fibroids noted measuring approximately 1 to 3 cm. PROCEDURE: Patient was taken to the operating room prepared and draped in normal sterile fashion in dorsolithotomy position. Under sterile conditions a Montelongo catheter was placed to gravity. Speculum was placed into the vagina and the cervix was grasped on the anterior lip with a single-tooth tenaculum. The cervix was then dilated to accommodate a medium V care uterine manipulator. Manipulator was placed, gloves were changed and attention was turned to the upper portion of the case. A 2-1/2 cm umbilical skin incision was made 11 blade and this was carried through to the underlying layer of fascia with the same 11 blade. The fascia was grasped to Mike's and transacted with Mello's. Peritoneal cavity was entered bluntly. A GelPort was placed in a normal fashion the camera port and air seal in the appropriate locations. Rollins was then inflated with approximately 2 L of CO2 gas. The camera was then introduced into the peritoneal cavity through the camera port and the patient was placed in steep Trendelenburg. The above findings were noted. Under direct visualization two 5 mm ports were placed approximately 10 cm on either side of the umbilicus. The robot was then docked with the vessel sealer placed on the patient's left and the monopolar scissors placed placed on the patient's right. I then unscrubbed and set at the robotic console beginning with the left adnexa fallopian tube was transected from the uterus using the vessel sealer and monopolar scissors as needed. The fallopian tube was then removed through the assistance port. The ovarian ligament was then transected using the vessel sealer. The uterine artery was skeletonized using blunt dissection and ligated using the vessel sealer down to the level of the external cervical os. The bladder flap was then begun using monopolar scissors and blunt dissection over the V care cup noted through the mucosa. Attention was then turned to the right adnexa where the fallopian tube was transected in a similar fashion. The utero-ovarian ligament was transected using the vessel sealer. The Uterine artery was then transected using the vessel sealer and skeletonized using blunt dissection. The vessel sealer was again used to completely transect the uterine artery down to the level of the external cervical os. The bladder flap was completed using similar sharp and blunt dissection. Once the bladder was felt to be adequately away from the lower uterine segment, the colpotomy was begun on the anterior aspect of the cervix following the outline of the V care cup mucosa. The cup was followed in a circumferential fashion completely around the cervix estimate was completely freed. The specimen was then removed through the vaginal defect. The instruments were then changed to a [place] needle street flusher driver and pro-grasp. AV lock needle was introduced through the assistance port. The lock needle was used to close the vaginal cuff and hemostasis. The needle was then removed through the assistance port. The peritoneal cavity was carefully inspected the ureters were noted to both be peristalsing and there was no signs of hydroureter. The robot was then undocked. The fascia was closed at the umbilical skin incision seen 0 Vicryl 3 skin incisions were closed using 4-0 Vicryl. Sponge lap and needle counts were correct x2 and the patient was taken to recovery in stable condition.
[2019-12-21 05:36] LABS: ABSOLUTE LYMPHOCYTES (AUTO) 2.3 10^3/uL (0.5-4.7); ABSOLUTE MONOCYTES (AUTO) 1.2 10^3/uL (0.1-1.4); ABSOLUTE NEUT (AUTO) 6.3 10^3/uL (1.7-8.2); BASOPHILS % (AUTO) 0.2 % (0-2); EOSINOPHILS % (AUTO) 0.2 % (0-6); HEMATOCRIT 26.2 % (36.0-47.0); HEMOGLOBIN 8.9 g/dL (12.0-15.5); LYMPHOCYTES % (AUTO) 23.4 % (13-45); MEAN CORPUSCULAR HEMOGLOBIN 32.6 pg (27.0-33.4); MEAN CORPUSCULAR VOLUME 96 fl (80-97); MONOCYTES % (AUTO) 11.9 % (3-13); PLATELET COUNT 280 10^3/uL (150-450); RED BLOOD COUNT 2.74 10^6/uL (3.72-5.28); RED CELL DISTRIBUTION WIDTH 13.1 % (11.5-14.0); SEGMENTED NEUTROPHILS % (AUTO) 64.3 % (42-78); TOTAL CELLS COUNTED % (AUTO) 100 %; WHITE BLOOD COUNT 9.9 10^3/uL (4.0-10.5)
[2019-12-21] MEDS: KETOROLAC TROMETHAMINE INJ/PF 30 MG/1 ML SDV IV SCH (05:38)
--- NOTE | 2019-12-21 08:02 | PDOC DISCHARGE SUMMARY ---
Impression - Admit/DC Date/PCP Admission Date/Primary Care Provider: [facility] Discharge Date: 12/21/19 - Discharge Diagnosis (1) Abnormal uterine bleeding Is this a current diagnosis for this admission?: Yes (2) Pelvic pain Is this a current diagnosis for this admission?: Yes (3) Anemia Is this a current diagnosis for this admission?: Yes (4) Leiomyoma of body of uterus Is this a current diagnosis for this admission?: Yes - Assessment Summary: underwent an RATLH w/ b/l salpingectomy without complications. unremarkable post operative course. voiding well and tolerating regular diet - Additional Information Resuscitation Status: Full Code Discharge Diet: As Tolerated Discharge Activity: Balance Activity w/Rest, No Driving, No Lifting Over 10 Pounds, No Lifting/Push/Pulling, Pelvic Rest, No tub bath Referrals: [facility] [Primary Care Provider] - Prescriptions: Oxycodone HCl/Acetaminophen [Percocet 5-325 mg Tablet] 1 tab PO Q6HP PRN #30 tablet PRN Reason: Ibuprofen [Motrin 800 mg Tablet] 800 mg PO Q8HP PRN #60 tablet PRN Reason: Home Medications: Gabapentin 100 mg PO BID PRN 04/23/18 Trazodone HCl 50 mg PO HSP PRN 04/23/18 Melatonin 1 mg PO HSP PRN 12/03/19 Ibuprofen [Motrin 800 mg Tablet] 800 mg PO Q8HP PRN #60 tablet 12/21/19 Oxycodone HCl/Acetaminophen [Percocet 5-325 mg Tablet] 1 tab PO Q6HP PRN #30 tablet 12/21/19 History of Present Illiness History of Present Illness: RENATO TURNER is a 39 year old female Physical Exam - Physical Exam Vital Signs: Temp Pulse Resp BP Pulse Ox 97.7 F 52 L 16 100/57 L 100 12/21/19 04:04 12/21/19 04:04 12/21/19 04:04 12/21/19 04:04 12/21/19 04:04 Intake & Output 12/20/19 12/21/19 12/22/19 06:59 06:59 06:59 Intake Total 0 1750 Output Total 2320 Balance 0 -570 Weight 79.38 kg Results Laboratory Results: WBC 9.9 10^3/uL (4.0-10.5) 12/21/19 05:06 RBC 2.74 10^6/uL (3.72-5.28) L 12/21/19 05:06 Hgb 8.9 g/dL (12.0-15.5) L 12/21/19 05:06 Hct 26.2 % (36.0-47.0) L 12/21/19 05:06 MCV 96 fl (80-97) 12/21/19 05:06 MCH 32.6 pg (27.0-33.4) 12/21/19 05:06 MCHC 34.0 g/dL (32.0-36.0) 12/21/19 05:06 RDW 13.1 % (11.5-14.0) 12/21/19 05:06 Plt Count 280 10^3/uL (150-450) 12/21/19 05:06 Lymph % (Auto) 23.4 % (13-45) 12/21/19 05:06 [place] % (Auto) 11.9 % (3-13) 12/21/19 05:06 Eos % (Auto) 0.2 % (0-6) 12/21/19 05:06 Baso % (Auto) 0.2 % (0-2) 12/21/19 05:06 Absolute Neuts (auto) 6.3 10^3/uL (1.7-8.2) 12/21/19 05:06 Absolute Lymphs (auto) 2.3 10^3/uL (0.5-4.7) 12/21/19 05:06 Absolute Monos (auto) 1.2 10^3/uL (0.1-1.4) 12/21/19 05:06 Absolute Eos (auto) 0.0 10^3/uL (0.0-0.6) 12/21/19 05:06 Absolute Basos (auto) 0.0 10^3/uL (0.0-0.2) 12/21/19 05:06 Seg Neutrophils % 64.3 % (42-78) 12/21/19 05:06 Sodium 141.0 mmol/L (137-145) 12/03/19 10:23 Potassium 4.4 mmol/L (3.6-5.0) 12/03/19 10:23 Chloride 104 mmol/L (98-107) 12/03/19 10:23 Carbon Dioxide 25 mmol/L (22-30) 12/03/19 10:23 Anion Gap 12 (5-19) 12/03/19 10:23 BUN 11 mg/dL (7-20) 12/03/19 10:23 Creatinine 0.85 mg/dL (0.52-1.25) 12/03/19 10:23 Est GFR ( Amer) > 60 (>60) 12/03/19 10:23 Est GFR (MDRD) Non-Af > 60 (>60) 12/03/19 10:23 Glucose 82 mg/dL (75-110) 12/03/19 10:23 Calcium 9.3 mg/dL (8.4-10.2) 12/03/19 10: Total Bilirubin 0.4 mg/dL (0.2-1.3) 12/03/19 10: Direct Bilirubin 0.2 mg/dL (0.0-0.4) 12/03/19 10:23 Neonat Total Bilirubin Not Reportable 12/03/19 10:23 Neonat Direct Bilirubin Not Reportable 12/03/19 10:23 Neonat Indirect Bili Not Reportable 12/03/19 10:23 AST 18 U/L (14-36) 12/03/19 10:23 ALT 12 U/L (<35) 12/03/19 10:23 Alkaline Phosphatase 63 U/L (38-126) 12/03/19 10:23 Total Protein 8.1 g/dL (6.3-8.2) 12/03/19 10:23 Albumin 4.3 g/dL (3.5-5.0) 12/03/19 10:23 Urine Color YELLOW 12/03/19 10:30 Urine Appearance CLEAR 12/03/19 10:30 Urine pH 5.0 (5.0-9.0) 12/03/19 10:30 Ur Specific [place] 1.018 12/03/19 10:30 Urine Protein NEGATIVE mg/dL (NEGATIVE) 12/03/19 10:30 Urine Glucose (UA) NEGATIVE mg/dL (NEGATIVE) 12/03/19 10:30 Urine Ketones NEGATIVE mg/dL (NEGATIVE) 12/03/19 10:30 Urine Blood MODERATE (NEGATIVE) H 12/03/19 10:30 Urine Nitrite NEGATIVE (NEGATIVE) 12/03/19 10:30 Urine Bilirubin NEGATIVE (NEGATIVE) 12/03/19 10:30 Urine Urobilinogen NEGATIVE mg/dL (<2.0) 12/03/19 10:30 Ur Leukocyte Esterase NEGATIVE (NEGATIVE) 12/03/19 10:30 Urine WBC (Auto) 1 /HPF 12/03/19 10:30 Urine RBC (Auto) 1 /HPF 12/03/19 10:30 Squamous Epi Cells Auto 2 /HPF 12/03/19 10:30 Urine Mucus (Auto) RARE /LPF 12/03/19 10:30 Urine Ascorbic Acid 40 (NEGATIVE) H 12/03/19 10:30 Urine HCG, Qual NEGATIVE (NEGATIVE) 12/20/19 05:15 Blood Type O POSITIVE 12/19/19 15:07 Antibody Screen NEGATIVE 12/19/19 15:07 Stroke Is this a Stroke Patient?: No Acute Heart Failure - Is this a Heart Failure Patient?: No
[2019-12-21] MEDS ORDERED: IBUPROFEN 800 MG TABLET PO PRN (10:00)
[2019-12-21 10:09] VITALS: BP 104/56
== END 2019-12-21 11:20 | disposition home or self-care (01) ==
LOC: OROUT 05:16 → 2N 11:20 → OROUT 12-21 11:20
PROVIDERS: ATTEND Obstetrics & Gynecology
DX: D25.9 Leiomyoma of uterus, unspecified (principal); N92.0 Excessive and frequent menstruation with regular cycle; N87.0 Mild cervical dysplasia; N80.0 Endometriosis of uterus; D64.9 Anemia, unspecified; G89.4 Chronic pain syndrome
CPT/HCPCS: 58571; S2900; 36415; 80053; 81001; 81025; 840; 85025; 85027; 86850; 86900; 86901; 88307; A4649; J0131; J0330; J0456; J0690; J0696; J1100; J1885; J2250; J2270; J2405; J2704; J2710; J3010; J3490; J7060; J7120

== ENCOUNTER 2019-12-24 21:19 | Emergency (ER) | payer OTHER ==
[2019-12-24 21:25] VITALS: BP 106/58
--- NOTE | 2019-12-25 01:33 | ER Document Report ---
Entered by LETI CRENSHAW SCRIBE 12/25/19 0124 Acting as scribe for:REYNA GAYTAN DO ED General - General Chief Complaint: Skin Problem Stated Complaint: POST OP ISSUES Time Seen by Provider: 12/25/19 00:54 Primary Care Provider: MACHELLE,NEFTALI [Primary Care Provider] - Follow up as needed Information source: Patient Notes: 39-year-old female presents to the emergency department with a skin problem. Patient explains that she thinks she burned herself with the heating pad. Patient reports that today she applied hydrocortisone, neosporin and showered with no relief. Patient states that she had her hysterectomy 5 days ago and has been getting progressively better since. Patient denies cough and sputum. TRAVEL OUTSIDE OF THE [place] IN LAST 30 DAYS: No - Related Data Allergies/Adverse Reactions: Sulfa (Sulfonamide Antibiotics) Allergy (Verified 12/24/19 22:53) Past Medical History - General Information source: Patient - Social History Smoking Status: Never Smoker Cigarette use (# per day): No Chew tobacco use (# tins/day): No Frequency of alcohol use: None Drug Abuse: None Family History: Reviewed & Not Pertinent Patient has suicidal ideation: No Patient has homicidal ideation: No Past Surgical History: Reports: Hx Hysterectomy, Hx Orthopedic Surgery - hip - Immunizations Hx Diphtheria, Pertussis, Tetanus Vaccination: Yes Review of Systems - Review of Systems Constitutional: No symptoms reported EENT: No symptoms reported Cardiovascular: No symptoms reported Respiratory: See HPI. denies: Cough, Sputum Gastrointestinal: No symptoms reported Genitourinary: No symptoms reported Female Genitourinary: No symptoms reported Musculoskeletal: No symptoms reported Skin: See HPI, Other - Blisters slightly above navel. Hematologic/Lymphatic: No symptoms reported Neurological/Psychological: No symptoms reported -: Yes All other systems reviewed and negative Physical Exam - Vital signs Vitals: Temp Pulse Resp BP Pulse Ox 98.2 F 81 20 106/58 L 98 12/24/19 21:24 12/24/19 21:24 12/24/19 21:24 12/24/19 21:24 12/24/19 21:24 - Notes Notes: General: Alert, appears well. HEENT: Normocephalic. Atraumatic. PERRL. Extraocular movements intact. Oropharynx clear. Neck: Supple. Non-tender. Respiratory: No respiratory distress. Clear and equal breath sounds bilaterally. Cardiovascular: Regular rate and rhythm. Abdominal: Non-tender. No distension. Normal Bowel Sounds. Golf ball sized affected area underneath center hysterectomy incision. Affected area has a serous appearance with blistering, no associated redness or drainage. Side incision are healing normally. Back: No gross abnormalities. Extremities: Moves all four extremities. Upper extremities: Normal inspection. Normal ROM. Lower extremities: Normal inspection. No edema. Normal ROM. Neurological: Normal cognition. AAOx4. Normal speech. Psychological: Normal affect. Normal Mood. Skin: Warm. Dry. Normal color. Course - Re-evaluation Re-evalutation: 12/25/19 01:43 MDM 39 year old POD #5 Tuesday is progressing well from hysterectomy. Midline incission near umbilicus has a small area of blisters present. She has been applying a heating pad to that area. The abd is soft and very minimally ttp. Their is no evidence of a wound infection looking at the wound. Additionally, she is experiencing less pain day by day. While the BP is a bit low she does have a h/o BP being on the low side. - Vital Signs Vital signs: Temp Pulse Resp BP Pulse Ox 98.2 F 81 20 106/58 L 98 12/24/19 21:24 12/24/19 21:24 12/24/19 21:24 12/24/19 21:24 12/24/19 21:24 - Laboratory Result Diagrams: 12/25/19 01:26 12/25/19 01:26 Laboratory results interpreted by me: 12/25/19 12/25/19 12/25/19 01:26 01:26 01:26 RBC 3.03 L Hgb 10.0 L Hct 29.6 L Glucose 122 H Urine Ascorbic Acid 40 H Discharge - Discharge Clinical Impression: Postoperative abdominal pain Blister of abdominal wall without infection Qualifiers: Encounter type: initial encounter Qualified Code(s): S30.821A - Blister (nonthermal) of abdominal wall, initial encounter Condition: Good Disposition: HOME, SELF-CARE Instructions: Abdominal Pain ([facility]), [place] ([facility]) Additional Instructions: Call the OB surgeon's office in the morning to let them know of the blisters. Avoid using a heating pad. Do not use a steroid cream to the wound area. Please return here for any problems or any concerns. Referrals: [facility] [Primary Care Provider] - Follow up as needed PAM LIZ MD [ACTIVE STAFF] - Follow up as needed I personally performed the services described in the documentation, reviewed and edited the documentation which was dictated to the scribe in my presence, and it accurately records my words and actions.
[2019-12-25 01:37] LABS: ABSOLUTE BASOPHILS # (AUTO) 0.1 10^3/uL (0.0-0.2); ABSOLUTE EOSINOPHILS # (AUTO) 0.2 10^3/uL (0.0-0.6); ABSOLUTE MONOCYTES (AUTO) 0.7 10^3/uL (0.1-1.4); ABSOLUTE NEUT (AUTO) 3.7 10^3/uL (1.7-8.2); BASOPHILS % (AUTO) 1.4 % (0-2); EOSINOPHILS % (AUTO) 2.7 % (0-6); HEMATOCRIT 29.6 % (36.0-47.0); MEAN CORPUSCULAR HEMOGLOBIN 32.8 pg (27.0-33.4); MEAN CORPUSCULAR HGB CONC 33.7 g/dL (32.0-36.0); MEAN CORPUSCULAR VOLUME 97 fl (80-97); MONOCYTES % (AUTO) 8.6 % (3-13); PLATELET COUNT 339 10^3/uL (150-450); RED BLOOD COUNT 3.03 10^6/uL (3.72-5.28); RED CELL DISTRIBUTION WIDTH 13.8 % (11.5-14.0); SEGMENTED NEUTROPHILS % (AUTO) 48.3 % (42-78); TOTAL CELLS COUNTED % (AUTO) 100 %; WHITE BLOOD COUNT 7.6 10^3/uL (4.0-10.5)
[2019-12-25 01:55] LABS: APPEARANCE,URINE CLEAR; BILIRUBIN,URINE NEGATIVE (NEGATIVE); COLOR,URINE YELLOW; GLUCOSE, URINE NEGATIVE (NEGATIVE); KETONES,URINE NEGATIVE (NEGATIVE); LEUKOCYTE ESTERASE,URINE NEGATIVE (NEGATIVE); NITRITE,URINE NEGATIVE (NEGATIVE); PROTEIN,URINE NEGATIVE (NEGATIVE); URINE SPECIFIC GRAVITY 1.013; UROBILINOGEN,URINE NEGATIVE mg/dL (<2.0)
[2019-12-25 02:07] LABS: ALKALINE PHOSPHATASE 58 U/L (38-126); ANION GAP 7 (5-19); ASPARTATE AMINO TRANSFERASE 32 U/L (14-36); BILIRUBIN,TOTAL 0.4 mg/dL (0.2-1.3); BLOOD UREA NITROGEN 8 mg/dL (7-20); CALCIUM 8.9 mg/dL (8.4-10.2); CARBON DIOXIDE 25 mmol/L (22-30); CHLORIDE 106 mmol/L (98-107); GLUCOSE 122 mg/dL (75-110); POTASSIUM 4.2 mmol/L (3.6-5.0); TOTAL PROTEIN 7.5 g/dL (6.3-8.2)
== END 2019-12-25 02:35 | disposition home or self-care (01) ==
LOC: ER 21:19
DX: S30.821A Blister (nonthermal) of abdominal wall, initial encounter (principal); X58.XXXA Exposure to other specified factors, initial encounter; G89.18 Other acute postprocedural pain; Z88.2 Allergy status to sulfonamides; Z90.710 Acquired absence of both cervix and uterus
CPT/HCPCS: 36415; 80053; 81001; 85025; 99283